=== PATIENT | female | born 1985 | race Caucasian/White ===

== ENCOUNTER 2016-12-08 21:18 | Emergency (ER) | payer MEDICAID ==
[2016-12-08 21:56] VITALS: BP 122/76; PULSE 72; RESP 16; TEMP 98; O2SAT 98
--- NOTE | 2016-12-08 23:27 | C.PDOC ---
History Of Present Illness 30 y/o female c/o sharp burning sensation to roof of her mouth for 2 days. no hx of trauma or injury, no hot foods. nothing tried for relief. no tooth pain, no recent dental work. Time Seen by Provider: 12/08/16 22:11 Chief Complaint (Nursing): Dental Pain History Per: Patient History/Exam Limitations: no limitations Onset/Duration Of Symptoms: Days (2) Current Symptoms Are (Timing): Worse Pain Scale Rating Of: 6 Quality: Positive for: Sharp, Burning Recent travel outside of the [place]: No Past Medical History Reviewed: Historical Data, Nursing Documentation, Vital Signs Vital Signs: Last Vital Signs Temp 98 F 12/08/16 21:54 Pulse 72 12/08/16 21:54 Resp 16 12/08/16 21:54 BP 122/76 12/08/16 21:54 Pulse Ox 98 12/09/16 04:34 - Medical History PMH: Diabetes, HTN, Hypercholesterolemia Surgical History: No Surg Hx Family History: States: Unknown Family Hx - Social History Hx Tobacco Use: No Hx Alcohol Use: No Hx Substance Use: No - Immunization History Hx Tetanus Toxoid Vaccination: No Hx Influenza Vaccination: Yes Hx Pneumococcal Vaccination: No Physical Exam - Physical Exam Appears: Non-toxic, No Acute Distress Skin: Normal Color, Warm, Dry, Diaphoretic Head: Atraumatic, Normacephalic Nose: Normal Oral Mucosa: Moist Tongue: Normal Appearing Lips: Normal Appearing Teeth: Normal Dentition Gingiva: No Tender, No Bleeding 1 - mild erythema, no excoriation, laceraiton noted Throat: Normal, No Erythema, No Exudate Neck: Normal, No Midline Cervical Tenderness Neurological/Psych: Oriented x3, Normal Speech, Normal Cognition, Normal Cranial Nerves ED Course And Treatment O2 Sat by Pulse Oximetry: 98 Medical Decision Making Medical Decision Making: pt with irritation to soft palate; recommend soft food, analgesic, dental f/u Disposition Counseled Patient/Family Regarding: Diagnosis, Need For Followup - Disposition Disposition: HOME/ ROUTINE Disposition Time: 23:24 Condition: STABLE Additional Instructions: Gargle with warm salty water several times a day. Avoid sharp foods, eat soft foods until pain resolves. Tylenol or Motrin for pain if needed. Follow up with dental. Forms: General Discharge Instructions - Clinical Impression Clinical Impression: Soft palate injury
== END 2016-12-08 23:31 | disposition home or self-care (01) ==
LOC: C.ER 21:18
DX: S09.93XA Unspecified injury of face, initial encounter (principal); X58.XXXA Exposure to other specified factors, initial encounter

== ENCOUNTER 2017-01-08 23:42 | Emergency (ER) | payer MEDICAID ==
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
[2017-01-09] MEDS ORDERED: Silver Sulfadiazine 1% Cream (20 gm) TOP STA (00:20)
[2017-01-09] MEDS ORDERED: Tmp-Smz 800 mg-160 mg DS Tab PO STA (00:21)
[2017-01-09] MEDS ORDERED: Silver Sulfadiazine 1% Cream (20 gm) ONE (00:23)
[2017-01-09 00:41] LABS: BASO # 0.1 K/uL (0.0-0.2); BASO % 0.9 % (0.0-2.0); EOS # 0.1 K/uL (0.0-0.7); EOS % 0.8 % (0.0-4.0); HEMATOCRIT 36.6 % (34.0-47.0); LYMPH # 4.1 K/uL (1.0-4.3); LYMPH % 41.1 % (20.0-40.0); MEAN CELL VOLUME 82.6 fL (81.0-99.0); MEAN CORPUSCULAR HEMOGLOBIN 26.6 pg (27.0-31.0); MEAN CORPUSCULAR HGB CONC 32.3 g/dL (33.0-37.0); MONO # 0.7 K/uL (0.0-0.8); NRBC % 0.1 % (0.0-2.0); RED CELL DISTRIBUTION WIDTH 13.8 % (11.5-14.5)
[2017-01-09] MEDS ORDERED: Vancomycin 1 GM 1 GM/250 ML BAG IVPB ONE (00:59)
[2017-01-09 01:04] LABS: BLOOD UREA NITROGEN 21 mg/dL (7-17); CALCIUM 9.5 mg/dl (8.6-10.4); CARBON DIOXIDE 21 mmol/L (22-30); CHLORIDE 100 mmol/L (98-107); GFR AFRICAN-AMERICAN > 60; GLUCOSE,RANDOM 204 mg/dL (65-105); SODIUM 136 mmol/L (132-148)
[2017-01-09] MEDS ORDERED: Sodium Chloride 0.9% 500 ML IV ONE ×2 (01:59→02:10)
[2017-01-09 02:37] VITALS: BP 132/75; PULSE 82; RESP 18; TEMP 98.2
[2017-01-09 04:49] VITALS: O2SAT 100
== END 2017-01-09 02:38 | disposition home or self-care (01) ==
LOC: C.ER 23:42 → SUPCPDRO 23:42 → C.ER 01-09 02:38
DX: T21.22XA Burn of second degree of abdominal wall, initial encounter (principal); T31.0 Burns involving less than 10% of body surface; X11.8XXA Contact with other hot tap-water, initial encounter; E11.649 Type 2 diabetes mellitus with hypoglycemia without coma
CPT/HCPCS: 80048; 85025; 90471; 90715; 96365; 99285; J7040; J7050

== ENCOUNTER 2017-03-21 14:38 | Emergency (ER) | payer MEDICAID ==
--- NOTE | 2017-03-21 17:49 | C.PDOC ---
History Of Present Illness 31 y/o female with a hx of anxiety and depression, c/o dental pain in the left upper mouth region for 3 days. Patient has no dentist. Denies fever, chills, nausea, or vomiting. Time Seen by Provider: 03/21/17 15:14 Chief Complaint (Nursing): Dental Pain History Per: Patient History/Exam Limitations: no limitations Onset/Duration Of Symptoms: Days Current Symptoms Are (Timing): Still Present Severity: Mild Quality: Positive for: "Pain" Recent travel outside of the [place]: No Additional History Per: Patient Past Medical History Reviewed: Historical Data, Nursing Documentation, Vital Signs Vital Signs: Last Vital Signs Temp 98.4 F 03/21/17 17:59 Pulse 69 03/21/17 17:59 Resp 18 03/21/17 17:59 BP 114/78 03/21/17 17:59 Pulse Ox 98 03/21/17 19:00 - Medical History PMH: Diabetes, HTN, Hypercholesterolemia Surgical History: Family History: States: Unknown Family Hx - Social History Hx Tobacco Use: No Hx Alcohol Use: No Hx Substance Use: No - Immunization History Hx Tetanus Toxoid Vaccination: No Hx Influenza Vaccination: Yes Hx Pneumococcal Vaccination: No Review Of Systems Except As Marked, All Systems Reviewed And Found Negative. Constitutional: Negative for: Fever, Chills ENT: Positive for: Mouth Pain (Dental pain) Gastrointestinal: Negative for: Nausea, Vomiting Physical Exam - Physical Exam Appears: Non-toxic, No Acute Distress, Other (Morbidly obese) Skin: Warm, Dry Head: Atraumatic, Normacephalic Ear(s): Bilateral: Normal Oral Mucosa: Moist Teeth: No Normal Dentition (Poor. Missing several teeth, with old fillings to most of the molars. NO abdscess, no drainage, no swelling.) Throat: Normal, No Erythema Neurological/Psych: Oriented x3 ED Course And Treatment O2 Sat by Pulse Oximetry: 98 (RA) Pulse Ox Interpretation: Normal Medical Decision Making Medical Decision Making: Ultram given to the patient. Disposition Counseled Patient/Family Regarding: Diagnosis, Need For Followup, Rx Given - Disposition Disposition: HOME/ ROUTINE Disposition Time: 17:46 Condition: STABLE Additional Instructions: Follow up with a dentist in the morning. Prescriptions: Acetaminophen with Codeine [Tylenol with Codeine #3 Tablet] 2 each PO TID #12 tablet Ibuprofen [Motrin] 600 mg PO TID #9 tab Sulfamethoxazole/Trimethoprim [Bactrim DS 800 mg-160 mg] 1 tab PO BID #14 tab Instructions: Toothache (ED) Forms: [facility] (Danish) - POA Present On Arrival: None - Clinical Impression Clinical Impression: Dental caries, Pain, dental - Scribe Statement The provider has reviewed the documentation as recorded by the Scribe Nicole clemons All medical record entries made by the Yulietibe were at my direction and personally dictated by me. I have reviewed the chart and agree that the record accurately reflects my personal performance of the history, physical exam, medical decision making, and the department course for this patient. I have also personally directed, reviewed, and agree with the discharge instructions and disposition.
[2017-03-21 18:00] VITALS: BP 114/78; PULSE 69; RESP 18; TEMP 98.4
[2017-03-21 19:00] VITALS: O2SAT 98
== END 2017-03-21 18:08 | disposition home or self-care (01) ==
LOC: C.ER 14:38
DX: K02.9 Dental caries, unspecified (principal); E11.9 Type 2 diabetes mellitus without complications; E78.00 Pure hypercholesterolemia, unspecified; I10 Essential (primary) hypertension

== ENCOUNTER 2017-09-01 15:56 | Emergency (ER) | payer MEDICAID ==
[2017-09-01 16:07] VITALS: RESP 18
--- NOTE | 2017-09-01 17:11 | C.PDOC ---
History Of Present Illness 31 y.o morbidly obese female c/o dental pain in several teeth for 4 days. taking ibuprofen with no improvement. pt seen at [facility] [place] this morning and given tylenol with codeine and reports pain got worse. pt denies fever and chills. no facial swelling. has not seen a dentist in several months. Time Seen by Provider: 09/01/17 16:21 Chief Complaint (Nursing): Dental Pain History Per: Patient Onset/Duration Of Symptoms: Days (4) Current Symptoms Are (Timing): Worse Severity: Moderate Quality: Positive for: "Pain" Past Medical History Reviewed: Historical Data, Nursing Documentation, Vital Signs Vital Signs: Last Vital Signs Temp 98 F 09/01/17 17:36 Pulse 78 09/01/17 17:36 Resp 18 09/01/17 17:36 BP 112/79 09/01/17 17:36 Pulse Ox 99 09/01/17 17:36 - Medical History PMH: Diabetes, HTN, Hypercholesterolemia Surgical History: Family History: States: Unknown Family Hx - Social History Hx Tobacco Use: No Hx Alcohol Use: No Hx Substance Use: No - Immunization History Hx Tetanus Toxoid Vaccination: No Hx Influenza Vaccination: Yes Hx Pneumococcal Vaccination: No Review Of Systems Constitutional: Negative for: Fever, Chills ENT: Positive for: Mouth Pain, Other (no swelling to face). Negative for: Ear Pain, Ear Discharge Musculoskeletal: Negative for: Neck Pain Skin: Negative for: Rash Neurological: Negative for: Weakness, Numbness Physical Exam - Physical Exam Appears: Non-toxic, No Acute Distress, Other (morbidly obese) Skin: Warm, Dry Head: Atraumatic, Normacephalic Eye(s): bilateral: Normal Inspection Oral Mucosa: Moist Tongue: Normal Appearing Teeth: Tender To Palpation, Other (poor dentition with multiple missing teeth, several teeth in right lower mouth (molars) with what appears to be temporary fillings, tender to palpation, with no adjacent gum swelling, no flucutuance. carious left lower molar as well. ) Gingiva: Normal Appearing Throat: No Erythema, No Exudate, No Drooling Neck: Supple ED Course And Treatment O2 Sat by Pulse Oximetry: 100 Medical Decision Making Medical Decision Making: pt with several teeth ttp, d/c with clindamycin, f/u dental Disposition Counseled Patient/Family Regarding: Studies Performed, Diagnosis, Need For Followup, Rx Given - [facility] Disposition: HOME/ ROUTINE Disposition Time: 17:26 Condition: GOOD Additional Instructions: Continue taking ibuprofen and tylenol with codeine. Take antibiotics as prescribed. Follow u with dentist or dental clinic at [facility] as soon as possible. Prescriptions: Clindamycin [Cleocin] 300 mg PO Q6 #28 cap Instructions: Tooth Decay, Adult (DC) Forms: [facility] ([place]ian), General Discharge Instructions - Clinical Impression Clinical Impression: Dental caries, Pain, dental
[2017-09-01 17:38] VITALS: BP 112/79; PULSE 78; TEMP 98
[2017-09-01 22:30] VITALS: O2SAT 100
== END 2017-09-01 17:38 | disposition home or self-care (01) ==
LOC: C.ER 15:56
DX: K02.9 Dental caries, unspecified (principal); K08.89 Other specified disorders of teeth and supporting structures

== ENCOUNTER 2017-12-29 01:39 | Emergency (ER) | payer MEDICAID ==
[2017-12-29 01:49] VITALS: BMI 47.7
--- NOTE | 2017-12-29 02:44 | C.PDOC ---
History Of Present Illness 32 year old female presents to the ED c/o right upper dental pain. Patient states she has multiple dental caries and is supposed to get root canal done but her Dentist is out of town. Patient reports her teeth have been bothering her for the past 3-4 days. Patient reports taking Tylenol with no improvement. Patient denies fever, chills, facial swelling, nausea, vomit, headache. Time Seen by Provider: 12/29/17 02:11 Chief Complaint (Nursing): Dental Pain History Per: Patient History/Exam Limitations: no limitations Onset/Duration Of Symptoms: Days (3-4) Current Symptoms Are (Timing): Still Present Quality: Positive for: "Pain" Recent travel outside of the [place]: No Additional History Per: Patient Past Medical History Reviewed: Historical Data, Nursing Documentation, Vital Signs Vital Signs: Last Vital Signs Temp 97.6 F 12/29/17 03:42 Pulse 80 12/29/17 03:42 Resp 20 12/29/17 03:42 BP 129/81 12/29/17 03:42 Pulse Ox 98 12/30/17 03:34 - Medical History PMH: Diabetes, HTN, Hypercholesterolemia Surgical History: Family History: States: Unknown Family Hx - Social History Hx Tobacco Use: No Hx Alcohol Use: No Hx Substance Use: No - Immunization History Hx Tetanus Toxoid Vaccination: No Hx Influenza Vaccination: Yes Hx Pneumococcal Vaccination: No Review Of Systems Constitutional: Negative for: Fever, Chills Eyes: Negative for: Vision Change ENT: Positive for: Mouth Pain. Negative for: Nose Discharge, Throat Pain, Throat Swelling Respiratory: Negative for: Cough Gastrointestinal: Negative for: Nausea, Vomiting Musculoskeletal: Negative for: Neck Pain Skin: Negative for: Rash Neurological: Negative for: Headache, Dizziness Physical Exam - Physical Exam Appears: Non-toxic, No Acute Distress, Other (morbidly obese) Skin: Normal Color, Warm, Dry Head: Atraumatic, Normacephalic Eye(s): bilateral: Normal Inspection Oral Mucosa: Moist Tongue: No Lesions Lips: No Lesions Teeth: Caries (multiple teeth,upper and lower, tender to palpation), Edentulous (partly), Tender To Palpation (right upper molar), Other (multiple broken teeth , right upper and left lower ) Gingiva: Normal Appearing, No Erythema, No Swelling, No Tender, No Bleeding Throat: Normal, No Erythema, No Exudate Neck: Normal ROM, Supple Neurological/Psych: Oriented x3, Normal Speech, Normal Cognition Gait: Steady ED Course And Treatment O2 Sat by Pulse Oximetry: 98 (ON RA) Pulse Ox Interpretation: Normal Medical Decision Making Medical Decision Making: Plan: * Toradol 30 mg IM pt reports decreased pain after toradol. pt seen for similar complaint in August 2017, seen by me then at that time as well. discussed with patient that she must see dentist for definitive treatment of dental caries, pain will not resolve on its own, will only get worse. Disposition Counseled Patient/Family Regarding: Diagnosis, Need For Followup, Rx Given - Disposition Referrals: [facility] [Outside] Disposition: HOME/ ROUTINE Disposition Time: 03:04 Condition: GOOD Additional Instructions: Please take ibuprofen for pain as prescribed. Take with food. Follow up with your dentist or dentist at [facility]. Prescriptions: Ibuprofen [Motrin] 600 mg PO TID #30 tab Instructions: Tooth Decay, Adult (DC) Forms: General Discharge Instructions, [facility] ([place]) - Clinical Impression Clinical Impression: Dental caries, Pain due to dental caries - PA / INSOLE BEVELER / Resident Statement MD/DO has reviewed & agrees with the documentation as recorded. - Scribe Statement The provider has reviewed the documentation as recorded by the Scribe Subhash Clark All medical record entries made by the Scribe were at my direction and personally dictated by me. I have reviewed the chart and agree that the record accurately reflects my personal performance of the history, physical exam, medical decision making, and the department course for this patient. I have also personally directed, reviewed, and agree with the discharge instructions and disposition.
[2017-12-29 03:42] VITALS: BP 129/81; PULSE 80; RESP 20; TEMP 97.6
[2017-12-30 03:34] VITALS: O2SAT 98
== END 2017-12-29 03:42 | disposition home or self-care (01) ==
LOC: C.ER 01:39
DX: K02.9 Dental caries, unspecified (principal); E11.9 Type 2 diabetes mellitus without complications; E78.00 Pure hypercholesterolemia, unspecified; I10 Essential (primary) hypertension
CPT/HCPCS: 96372; 99284; J1885